=== PATIENT | female | born 1965 | race Caucasian/White ===

== ENCOUNTER 2017-05-15 02:38 | Emergency (ER) | payer MEDICAID ==
[~2017-05-15] VITALS: Ht 162.6 cm; Wt 62.0 kg
[2017-05-15 02:56] VITALS: BP 116/93
[2017-05-15] MEDS ORDERED: BACITRACIN ZINC OINT 500U/GM, 0.9 GM ONE (03:20)
== END 2017-05-15 03:39 | disposition home or self-care (01) ==
LOC: ED 02:50
DX: L03.115 Cellulitis of right lower limb (principal); B35.3 Tinea pedis
CPT/HCPCS: 82962; 99283

== ENCOUNTER 2017-05-17 13:32 | Emergency (ER) | payer MEDICAID ==
[~2017-05-17] VITALS: Ht 162.6 cm; Wt 65.9 kg
[2017-05-17 13:33] VITALS: BP 108/70
[2017-05-17] MEDS ORDERED: IBUP-1223 PO (14:38)
[2017-05-17] MEDS ORDERED: GABA600T2 PO (14:38)
[2017-05-17] MEDS ORDERED: CYCL-259 PO (14:38)
[2017-05-17] MEDS ORDERED: BACITRACIN ZINC OINT 500U/GM, 0.9 GM ONE (15:27)
== END 2017-05-17 15:44 | disposition home or self-care (01) ==
LOC: ED 15:15
DX: L03.116 Cellulitis of left lower limb (principal); L03.115 Cellulitis of right lower limb; Z90.49 Acquired absence of other specified parts of digestive tract
CPT/HCPCS: 99281

== ENCOUNTER 2018-03-12 17:32 | Emergency (ER) | payer MEDICAID ==
[~2018-03-12] VITALS: Ht 162.6 cm; Wt 62.9 kg
[~2018-03-12 17:32] MED LIST: CYCL-259 PO; GABA600T2 PO; IBUP-1223 PO
[2018-03-12 18:13] LABS: BASOPHILS # (AUTO) 0.02 x10^3/uL (0-0.1); BASOPHILS % (AUTO) 0 % (0-1); EOSINOPHILS # (AUTO) 0.22 x10^3/uL (0-0.4); EOSINOPHILS % (AUTO) 2 % (1-7); LYMPHOCYTES # (AUTO) 2.29 x10^3/uL (1-3.4); LYMPHOCYTES % (AUTO) 23 % (22-44); MD NO; MEAN CORPUSCULAR HEMOGLOBIN 30.2 pg (27.0-34.8); MEAN CORPUSCULAR HGB CONC 33.7 g/dL (32.4-35.8); MEAN CORPUSCULAR VOLUME 89.5 fL (80-100); MEAN PLATELET VOLUME 8.2 fL (7.4-10.4); MONOCYTES % (AUTO) 6 % (2-9); NEUTROPHILS # (AUTO) 6.94 x10^3/uL (1.8-6.8); NEUTROPHILS % (AUTO) 69 % (42-75); PLATELET COUNT 288 x10^3/uL (130-400); RED BLOOD COUNT 5.14 x10^6/uL (3.82-5.3); RED CELL DISTRIBUTION WIDTH 12.5 % (9.6-15.2)
[2018-03-12 18:20] LABS: ALANINE AMINOTRANSFERASE 12 U/L (12-78); ALBUMIN 3.7 g/dL (3.4-5.0); ANION GAP 7 mmol/L (5-15); CALCIUM 9.6 mg/dL (8.5-10.1); CHLORIDE 107 mmol/L (98-107); CREATININE 1.17 mg/dL (0.55-1.02)
[2018-03-12 18:25] LABS: ALKALINE PHOSPHATASE 92 U/L (45-117); BILIRUBIN,TOTAL 0.5 mg/dL (0.2-1.0); TOTAL PROTEIN 7.6 g/dL (6.4-8.2)
[2018-03-12 19:02] LABS: MICROSCOPIC AUTO
[2018-03-12 19:03] LABS: CULTURE INDICATED? YES
[2018-03-12] MEDS ORDERED: GABA300C10 PO (21:33)
[2018-03-12] MEDS ORDERED: MAALOX/HYOSCYAMINE/LIDOCAINE 45 ML BTL ONE (21:54)
[2018-03-12] MEDS ORDERED: MAALOX/HYOSCYAMINE/LIDOCAINE 45 ML BTL PO ONE (22:00)
[2018-03-12 23:30] VITALS: BP 110/75
== END 2018-03-12 23:32 | disposition home or self-care (01) ==
LOC: ED 19:06
DX: K29.70 Gastritis, unspecified, without bleeding (principal); N39.0 Urinary tract infection, site not specified; Z88.0 Allergy status to penicillin
CPT/HCPCS: 36415; 76700; 76830; 80053; 81001; 83690; 84703; 85025; 87086; 99285

== ENCOUNTER 2019-12-07 00:01 | Emergency (ER) | payer MEDICAID ==
[~2019-12-07] VITALS: Ht 162.6 cm; Wt 64.9 kg
[~2019-12-07 00:01] MED LIST changes: +GABA300C10 PO; -GABA600T2 PO; +GABA600T7 PO
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
[2019-12-07] MEDS ORDERED: ACETAMINOPHEN 500 MG TABLET ONE (01:11)
[2019-12-07] MEDS ORDERED: ACETAMINOPHEN 500 MG TABLET PO ONE (01:30)
[2019-12-07 01:48] LABS: RAPID INFLUENZA A POSITIVE (Negative); RAPID INFLUENZA B Negative (Negative)
--- NOTE | 2019-12-07 01:59 | NUR ---
Pt placed on 2lpm O2 for SpO2 of 89% at room air while sleeping.
[2019-12-07 02:49] VITALS: BP 95/58
== END 2019-12-07 02:51 | disposition home or self-care (01) ==
LOC: ED 02:30
DX: J10.1 Influenza due to other identified influenza virus with other respiratory manifestations (principal); Z20.828 Contact with and (suspected) exposure to other viral communicable diseases; J15.9 Unspecified bacterial pneumonia; R51 Headache; F17.210 Nicotine dependence, cigarettes, uncomplicated; Z90.49 Acquired absence of other specified parts of digestive tract
CPT/HCPCS: 70450; 71045; 87081; 87400; 87486; 87581; 87633; 87798; 87880; 99285

== ENCOUNTER 2020-03-03 16:40 | Emergency (ER) | payer MEDICAID ==
[~2020-03-03] VITALS: Ht 162.6 cm; Wt 63.2 kg
--- NOTE | 2020-03-03 17:53 | NUR ---
PARTY PLAN DEMONSTRATOR: PT TO ROOM FROM LOBBY
[2020-03-03 18:04] VITALS: BP 107/71
--- NOTE | 2020-03-03 18:04 | NUR ---
URINE CLOUDY YELLOW, COLLECTED/SENT TO LAB. VS RECHECKED AND IMPROVED FROM TRIAGE.
[2020-03-03 18:16] LABS: HCG UR SG 1.013 (1.003-1.030)
[2020-03-03 18:18] LABS: MICROSCOPIC AUTO
[2020-03-03] MEDS ORDERED: CEFTRIAXONE 1,000 MG IM ONE (18:30)
[2020-03-03] MEDS ORDERED: AZITHROMYCIN 500 MG TABLET PO ONE (18:30)
[2020-03-03 18:34] LABS: AMPHETAMINE SCREEN, URINE Negative (Negative); BARBITURATE SCREEN, URINE Negative (Negative); BENZODIAZEPINE SCREEN, URINE Negative (Negative); CANNABINOID SCREEN, URINE Negative (Negative); COCAINE SCREEN, URINE Positive (Negative); METHADONE SCREEN, URINE Negative (Negative); OPIATE SCREEN, URINE Negative (Negative)
--- NOTE | 2020-03-03 18:34 | NUR ---
PELVIC EXAM COMPLETED BY DR SANDS WITH THIS RN CHARTER COACH DRIVER. LAB SPECIMEN WALKED TO LAB.
--- NOTE | 2020-03-03 18:51 | NUR ---
REPORT TO ANUSHKA HILLIARD, TRANSFER OF CARE AT THIS TIME.
[2020-03-03 18:53] LABS: CLUE CELLS NONE SEEN (NONE SEEN); WET PREP WBCS MANY (FEW)
[2020-03-03] MEDS ORDERED: AZITHROMYCIN 500 MG TABLET ONE (18:57)
[2020-03-03] MEDS ORDERED: CEFTRIAXONE 250 MG ONE (18:57)
--- NOTE | 2020-03-03 19:06 | NUR ---
REPORT FROM RICKEY HILLIARD. PT MEDICATED. VSS. PT TO BE DISCHARGED. PT HAS NO NEEDS AT THIS TIME. CALL LIGHT IN REACH
--- NOTE | 2020-03-03 19:41 | NUR ---
Patient given discharge instructions and they have confirmed that they understand the instructions. Patient ambulatory with steady gait.
== END 2020-03-03 19:45 | disposition home or self-care (01) ==
LOC: ED 19:43
DX: N30.00 Acute cystitis without hematuria (principal); N72 Inflammatory disease of cervix uteri; R00.0 Tachycardia, unspecified; F17.200 Nicotine dependence, unspecified, uncomplicated
CPT/HCPCS: 80307; 81001; 81025; 87086; 87210; 87491; 87591; 87808; 96372; 99283; J0696

== ENCOUNTER 2020-07-15 16:30 | Emergency (ER) | payer MEDICAID ==
[~2020-07-15] VITALS: Ht 162.6 cm; Wt 58.2 kg
[2020-07-15 17:09] VITALS: BP 117/76
[2020-07-15 18:28] LABS: RAPID INFLUENZA A Negative (Negative); RAPID INFLUENZA B Negative (Negative)
--- NOTE | 2020-07-15 19:34 | NUR ---
NO ANSWER X 1
--- NOTE | 2020-07-15 20:30 | NUR ---
YARD GOODS SALESPERSON: CALLED FOR PT. PT NOT IN LOBBY AT THIS TIME.
== END 2020-07-15 20:46 | disposition left against medical advice (07) ==
LOC: ED 20:15
DX: J11.1 Influenza due to unidentified influenza virus with other respiratory manifestations (principal); H92.03 Otalgia, bilateral; Z20.828 Contact with and (suspected) exposure to other viral communicable diseases
CPT/HCPCS: 36415; 71045; 87400; 87635; 99284

== ENCOUNTER 2020-11-29 17:29 | Emergency (ER) | payer MEDICAID ==
[~2020-11-29] VITALS: Ht 162.6 cm; Wt 57.3 kg
[~2020-11-29 17:29] MED LIST changes: -CYCL-259 PO; +CYCL10TA2 PO
[2020-11-29 18:27] LABS: MICROSCOPIC INDICATED
--- NOTE | 2020-11-29 18:57 | NUR ---
Pt resting on gurney, no distress, denies needs at this time.
[2020-11-29 18:59] VITALS: BP 134/90
--- NOTE | 2020-11-29 19:21 | NUR ---
Patient/Caregiver given discharge instructions and they have confirmed that they understand the instructions. Patient ambulatory with steady gait.
== END 2020-11-29 19:22 | disposition home or self-care (01) ==
LOC: ED 19:05
DX: N30.01 Acute cystitis with hematuria (principal); R10.2 Pelvic and perineal pain; F17.210 Nicotine dependence, cigarettes, uncomplicated
CPT/HCPCS: 81001; 87086; 99283

== ENCOUNTER 2021-01-13 10:26 | Emergency (ER) | payer MEDICAID ==
[~2021-01-13] VITALS: Ht 162.6 cm; Wt 56.4 kg
--- NOTE | 2021-01-13 11:45 | NUR ---
SEAM PRESSER: PT TO ROOM FROM LOBBY
--- NOTE | 2021-01-13 11:55 | NUR ---
PT TO XRAY AT THIS TIME.
--- NOTE | 2021-01-13 11:58 | NUR ---
PT TO XRAY
--- NOTE | 2021-01-13 12:34 | NUR ---
PT BACK FROM IMAGING
[2021-01-13 13:16] VITALS: BP 102/63
== END 2021-01-13 13:31 | disposition home or self-care (01) ==
LOC: ED 13:15
DX: S20.211A Contusion of right front wall of thorax, initial encounter (principal); S60.811A Abrasion of right wrist, initial encounter; Z90.49 Acquired absence of other specified parts of digestive tract; Y08.89XA Assault by other specified means, initial encounter; Y93.89 Activity, other specified; Y92.009 Unspecified place in unspecified non-institutional (private) residence as the place of occurrence of the external cause; Y99.8 Other external cause status
CPT/HCPCS: 99284